=== PATIENT | female | born 1930 | race Caucasian/White ===

== ENCOUNTER 2018-08-24 20:40 | Observation (INO) | payer MEDICARE ==
[2018-08-24 21:14] LABS: Hemoglobin 11.1 g/dL (12.0-16.0); Mean Corpuscular HGB CONC 29.6 g/dL (32.0-36.0); Mean Corpuscular Hemoglobin 19.5 pg (27.0-31.0); Mean Corpuscular Volume 65.9 fL (78.0-98.0); Platelet Count 443 thou/uL (130-400); RBC Distribution Width 18.7 % (11.5-14.5); Red Blood Cell (RBC) Count 5.71 mill/uL (4.20-5.40); White Blood Cell (WBC) Count 9.7 thou/uL (4.8-10.8)
[2018-08-24 21:27] LABS: #Basophils 0.1 thou/uL (0.0-0.2); #Eosinphils 0.2 thou/uL (0.0-0.7); #Lymphocytes 1.9 thou/uL (1.20-3.40); #Monocytes 0.6 thou/uL (0.11-0.59); %Basophils 0.6 % (0.0-1.0); %Eosinophils 1.6 % (0.0-10.0); %Lymphocytes 19.4 % (21.0-51.0); %Monocytes 5.9 % (0.0-10.0); %Neutrophils 72.4 % (42.0-75.0); Anisocytosis SLIGHT = 6-15 cells (100X) (0-5/hpf); Hypochromia MODERATE=16-30 cells (100X) (0-5/hpf); MDiff Complete? YES; Microcytosis SLIGHT = 6-15 cells (100X) (0-5/hpf); Platelet Morphology Comment Appears Increased
[2018-08-24 21:29] LABS: ALT (SGPT) 9 U/L (8-55); AST (SGOT) 13 U/L (5-34); Albumin 3.8 g/dL (3.4-4.8); Alkaline Phosphatase 105 U/L (40-150); Anion Gap 13 mmol/L (10-20); BUN (Urea Nitrogen) 20 mg/dL (9.8-20.1); Bilirubin, Total 0.3 mg/dL (0.2-1.2); Calc. Creatinine Clearance 0 mL/min (70-130); Carbon Dioxide 27 mmol/L (23-31); Chloride 105 mmol/L (98-107); Estimated GFR-MDRD 47; Globulin 3.4 g/dL (2.4-3.5); Glucose 111 mg/dL (83-110); Protein, Total 7.2 g/dL (6.0-8.3); Sodium 141 mmol/L (136-145)
[2018-08-24 21:51] LABS: CKMB 1.5 ng/mL (0-6.6)
--- NOTE | 2018-08-24 22:21 | RAD ---
RIGHT WRIST THREE VIEWS: History: Right wrist injury following a fall. FINDINGS: Markedly comminuted distal radial fracture with extension intraarticularly, marked dorsal angulation and severe foreshortening with resultant deformity. Heterogeneous bony demineralization with some deg enerative changes. IMPRESSION: Comminuted distal radial fracture with foreshortening and dorsal angulation with intraarticular exten fernie and some resultant deformity. POS: [facility]
--- NOTE | 2018-08-24 22:36 | RAD ---
EXAM: CHEST ONE VIEW: History: Injury following a fall. Comparison: 11-08-17 FINDINGS: Heart size is within normal limits. There is some bony demineralization. No confluent pneumonia, over t edema, or pleural effusion. IMPRESSION: No significant acute intrathoracic disease. POS: [facility]
--- NOTE | 2018-08-24 22:40 | RAD ---
RIGHT FOREARM TWO VIEWS: History: Injury following a fall. FINDINGS: There is evidence for a comminuted distal radial fracture with some soft tissue swelling. There is ma lalignment. The remainder of the forearm appears intact. IMPRESSION: Comminuted fracture of the distal radius with deformity of the wrist. A follow up three view wrist ex am should be considered which would allow better evaluation of the wrist fracture. POS: [facility]
[2018-08-24] MEDS ORDERED: Lidocaine 1% PF 5 ML VIAL ONE (23:22)
--- NOTE | 2018-08-24 23:33 | CT ---
CT CERVICAL SPINE: History: Fall. Neck pain. FINDINGS: Axial images were obtained with coronal and sagittal reconstructions. There are changes of spondylosis at C5-6 and C6-7. No evidence of acute cervical spine fracture is se en. The odontoid is unremarkable. Some heterogeneity is present in the left thyroid lobe. This may represent a left thyroid mass. Corre late with elective thyroid sonography. IMPRESSION: C5-6 and C6-7 changes of spondylosis. No evidence of acute cervical spine fracture is seen. POS: [facility]
--- NOTE | 2018-08-24 23:38 | CT ---
CT BRAIN: History: 87-year-old with history of dementia. History of fall. Technique: Noncontrast enhanced CT images of the brain obtained from base of skull through the vertex . Brain and bone windows obtained. Comparison: 11-08-17 FINDINGS: Images demonstrate cortical atrophy. No evidence of acute intracranial masses, hemorrhages, strokes o r contusions seen. Ventricles have normal size. IMPRESSION: Cortical atrophy. POS: [facility]
[2018-08-25 01:28] LABS: Troponin I 0.099 ng/mL (< 0.028)
[2018-08-25 04:28] LABS: Troponin I 0.146 ng/mL (< 0.028)
[2018-08-25] MEDS ORDERED: Nitroglycerin 0.4 MG TAB (25 Tab Bottle) PO PRN (05:17)
[2018-08-25] MEDS ORDERED: Ondansetron ODT 4 MG TAB PO PRN (05:22)
[2018-08-25] MEDS ORDERED: Acetaminophen 325 MG TAB PO PRN (05:22)
[2018-08-25] MEDS ORDERED: Ondansetron PF 4 MG/2 ML Vial IVP PRN (05:22)
[2018-08-25] MEDS ORDERED: Calcium Carbonate 500 MG ChewTAB PO PRN (05:22)
[2018-08-25] MEDS ORDERED: hydrALAZINE 20 MG/ML VIAL SLOW IVP PRN (05:24)
--- NOTE | 2018-08-25 06:07 | HP ---
CHIEF COMPLAINT: Fall. HISTORY OF PRESENT ILLNESS: The patient is an 87-year-old female, with dementia , was brought in by EMS from [facility] after an episode of fall that was not witnessed. The patient normally ambulates with the help of her walker. She is unable to recall any details of other fall. There is no fever, chills, nausea, vomiting, or diarrhea reported. The patient complained of right wrist pain when EMS arrived. In the emergency room, her initial vital signs showed temperature 98.6, respiration 20, pulse of 72 with a blood pressure 182/100 with O2 saturation 99% on room air. She was found to have distal radial fracture that was reduced by the ER physician. PAST MEDICAL HISTORY: 1. Alzheimer dementia. 2. History of vitamin B12 deficiency. 3. Hypertension. 4. History of DVT in the left lower extremity status post IVC filter. 5. Hypothyroidism. 6. History of fall causing left proximal femur fracture. PAST SURGICAL HISTORY: 1. ORIF of the left intertrochanteric femur fracture. 2. IVC filter placement. ALLERGIES: THE PATIENT IS ALLERGIC TO CODEINE. CURRENT MEDICATIONS: At the skilled nursing; 1. Tylenol as needed. 2. Amlodipine 5 mg daily. 3. Aspirin 325 mg daily. 4. Vitamin B12 at 1000 mcg daily. 5. Hydrochlorothiazide 12.5 mg daily. 6. Namenda 10 mg b.i.d. 7. Milk of magnesia as needed. 8. Senokot-S 2 tablets daily. SOCIAL HISTORY: The patient currently lives at assisted living facility at [place]. Per [place] record, the patient is a do not resuscitate. Surrogate decision maker to be verified. FAMILY HISTORY: Cannot be obtained from the patient due to current cognitive status. REVIEW OF SYSTEMS: Cannot be obtained from the patient due to current cognitive status. PHYSICAL EXAMINATION: VITAL SIGNS: As discussed above. GENERAL: An 87-year-old female, in no apparent distress. HEENT: Head; atraumatic, normocephalic. Sclerae anicteric. Moist mucous membranes. No oral lesion. NECK: Supple. No JVD appreciated. No carotid bruit. LUNGS: Clear to auscultation bilaterally. No wheezing, rales, rhonchi. HEART: S1, S2 present. Regular rate and rhythm. 2/6 systolic murmur over the mitral area. ABDOMEN: Soft, nontender. Bowel sounds present. EXTREMITIES: Splint noted over the right wrist. There was trace edema in bilateral lower extremity. No calf tenderness. SKIN: Warm and dry. There is a small superficial hematoma noted over the right forehead. LYMPH NODES: No palpable lymph nodes in the neck. NEUROLOGY: The patient is spontaneously moving all 4 extremities. Detailed neurological examination could not be done due to current cognitive status. PSYCHIATRY: The patient is alert, awake, and oriented to place and person. Detailed psychiatry examination could not be done due to current cognitive status. MUSCULOSKELETAL: As discussed above. LABORATORY DATA: WBC 9.7 with hemoglobin 11.1, hematocrit 37.6, platelet of 443. Chemistry showed sodium 141, potassium 4, chloride 105, bicarb 27, BUN 20, creatinine 1.09, glucose of 111. LFTs in normal range. Troponin maximum was 0.146. IMAGING STUDIES: X-ray of the wrist showed distal radial fracture. Chest x-ray by my review was negative for acute findings. Cervical spine CT showed chronic changes. EKG by my review showed sinus rhythm with first-degree AV block, left axis deviation with nonspecific ST-T wave changes. IMPRESSION: 1. Status post ground level fall causing distal radial fracture. 2. Elevated troponin, probably secondary to demand ischemia. 3. Alzheimer dementia. 4. Hypertension. 5. History of vitamin B12 deficiency. 6. History of deep venous thrombosis, status post IVC filter. 7. Chronic kidney disease, stage 3. 8. Chronic hypochromic microcytic anemia. PLAN: The patient will be monitored in the telemetry unit for 24 hours. Orthopedic Team will be consulted for radial fracture. Resume selected home medications. DNR per skilled nursing record. Gentle hydration. We will check urinalysis. Fall precautions. Physical Therapy consultation. No infectious etiology identified. Continue vitamin B12 supplementation. Plan of care was discussed with the patient. We will discuss the plan of care with the family when they arrive. Job ID: [id number] [facility]
[2018-08-25] MEDS ORDERED: Amlodipine 5 MG TAB ONE (08:01)
[2018-08-25] MEDS ORDERED: Aspirin 325 MG TAB ONE (08:01)
--- NOTE | 2018-08-25 08:21 | RAD ---
RIGHT WRIST 3 VIEWS: HISTORY: Fracture. COMPARISON: 08/24/2018 at 8:06 p.m. FINDINGS: Limited evaluation of fine bony detail due to fiberglass cast. Distal radius fracture is again demon strated. There is slightly improved alignment when compared to the previous examination. Associated soft tissue swelling is still noted. Interval casting of a distal radius fracture. POS: [facility]
[2018-08-25 08:45] LABS: Anion Gap 13 mmol/L (10-20); BUN (Urea Nitrogen) 18 mg/dL (9.8-20.1); Calc. Creatinine Clearance 0 mL/min (70-130); Calcium 10.1 mg/dL (7.8-10.44); Carbon Dioxide 25 mmol/L (23-31); Chloride 106 mmol/L (98-107); Estimated GFR-MDRD 56; Glucose 118 mg/dL (83-110); Iron 19 ug/dL (50-170); Iron Binding Capacity, Total 360 mcg/dL (265-497); Potassium 3.8 mmol/L (3.5-5.1); Sodium 140 mmol/L (136-145)
[2018-08-25] MEDS: Cyanocobalamin (Vitamin B-12) 1,000 MCG TAB PO SCH (08:45)
[2018-08-25] MEDS: Senokot S 8.6-50 MG TAB PO SCH ×2 (08:45→21:01)
[2018-08-25] MEDS ORDERED: Amlodipine 5 MG TAB PO SCH (09:00)
[2018-08-25] MEDS ORDERED: Aspirin 325 mg Enteric Coated Tablet PO SCH (09:00)
[2018-08-25 09:23] LABS: CKMB 7.7 ng/mL (0-6.6)
[2018-08-25 09:56] LABS: #Lymphocytes 2.3 thou/uL (1.20-3.40); #Monocytes 0.7 thou/uL (0.11-0.59); #Neutrophils 8.1 thou/uL (1.40-6.50); %Basophils 0.2 % (0.0-1.0); %Eosinophils 0.3 % (0.0-10.0); %Lymphocytes 20.8 % (21.0-51.0); %Monocytes 6.4 % (0.0-10.0); %Neutrophils 72.3 % (42.0-75.0); Hemoglobin 10.9 g/dL (12.0-16.0); Mean Corpuscular HGB CONC 29.7 g/dL (32.0-36.0); Mean Corpuscular Hemoglobin 19.2 pg (27.0-31.0); Mean Corpuscular Volume 64.9 fL (78.0-98.0); Mean Platelet Volume 11.8 fL (7.4-10.4); Platelet Count 429 thou/uL (130-400); RBC Distribution Width 18.3 % (11.5-14.5); Red Blood Cell (RBC) Count 5.66 mill/uL (4.20-5.40); White Blood Cell (WBC) Count 11.1 thou/uL (4.8-10.8)
--- NOTE | 2018-08-25 12:44 | CON ---
DATE OF CONSULTATION: CHIEF COMPLAINT: Right wrist pain. HISTORY OF PRESENT ILLNESS: Ms. Ellington is an 87-year-old female who was found down at her nursing facility. She had fallen. She does not remember the events of the fall. She normally ambulates with a walker. She was found to have a wrist swelling and pain. She has dementia. She has been found to have a distal radius fracture on x-ray and she has been reduced and splinted. Orthopedics was consulted for this injury. The patient is resting comfortably in the emergency department. PAST MEDICAL HISTORY: Alzheimer's dementia, hypertension, history of DVT in the left lower extremity, hypothyroidism. PAST SURGICAL HISTORY: ORIF of left intertrochanteric femur fracture as well as IVC filter placement. ALLERGIES: TO CODEINE. SOCIAL HISTORY: The patient lives in a nursing facility. She denies smoking, alcohol, or drug use. FAMILY MEDICAL HISTORY: Noncontributory. REVIEW OF SYSTEMS: Positive for right mild wrist pain. Otherwise, she denies complaints or positives on review of systems. PHYSICAL EXAMINATION: VITAL SIGNS: Stable. She is normotensive on 98% on room air. GENERAL: She is alert, in no apparent distress, sitting with head of bed elevated. HEENT: Normocephalic, atraumatic. RESPIRATORY: Breathing comfortably. ABDOMEN: Soft, nontender, nondistended. MUSCULOSKELETAL: The patient's right upper extremity is in a splint. She is able to flex and extend the fingers without significant discomfort. She feels light touch in all digits. Two-second capillary refill. The splint goes above the elbow. IMAGES: X-rays of the right wrist demonstrate distal radius fracture with initial shortening and dorsal tilt with comminution. There has been a reduction maneuver with improved alignment and a splint has been placed. IMPRESSION: Right distal radius fracture status post reduction and splinting. PLAN: At this point, I think the patient will best be treated with nonoperative management. We will leave her splint in place for the next 10-14 days. At that point, I would like to see her back in the Orthopedic Clinic for x-ray as an outpatient and to convert her to a short-arm cast. She will likely need to wear immobilization for 6 weeks. We will continue to follow. She should elevate the arm. She will have access to pain control if needed. She is going to be monitored for her heart over the next 24 hours on telemetry. Job ID: [id number]
[2018-08-25 13:55] VITALS: BMI 24.2
--- NOTE | 2018-08-25 16:23 | PDOC.PN ---
- Subjective Encounter Start Date: 08/25/18 Encounter Start Time: 08:20 Subjective: Patient resting comfortably and without complaints. -: Difficult to obtain history due to underlying dementia. -: Does not recall what brought her into the hospital. Denies any pain. Aware she has a right distal radius fracture. She has been seen by Ortho who have advised she remain in a splint for at least 10 days. No recommendations for surgery at present. She was noted to have an indeterminate trop. She doesnt recall experiencing any chest pain. She continues to state she feels great. - Objective Resuscitation Status - Order Detail: 08/25/18 05:17 Resuscitation Status Routine Resuscitation Status: DNAR: NO Resuscitation Discussed with: per [place] records Vital Signs & Weight: Vital Signs (12 hours) Temp Pulse Resp BP Pulse Ox 08/25/18 13:22 97.6 F 74 16 181/84 H 94 L 08/25/18 08:35 95 Weight Weight 149 lb 14.4 oz Result Diagrams: 08/25/18 08:12 08/25/18 08:12 Phys Exam - Physical Examination Constitutional: NAD HEENT: PERRLA, moist MMs, sclera anicteric, oral pharynx no lesions Neck: no nodes, supple, full ROM Respiratory: clear to auscultation bilateral Cardiovascular: RRR Gastrointestinal: soft, non-tender, no distention, positive bowel sounds Musculoskeletal: no edema, pulses present Right wrist splint in place. Normal sensation and color to right hand. Neurological: normal sensation, moves all 4 limbs Psychiatric: normal affect, A&O x 3 Skin: no rash, normal turgor Dx/Plan (1) Elevated troponin Code(s): R74.8 - ABNORMAL LEVELS OF OTHER SERUM ENZYMES Status: Acute Plan: Third troponin further elevated, 0.842. Patient without any chest pain. Possibly demand ischemia vs. acs. Given dose of aspirin 325 mg at presentation. Awaiting cardiology review. Repeat ECG to assess for dynamic changes. (2) Distal radius fracture, right Code(s): S52.501A - UNSP FRACTURE OF THE LOWER END OF RIGHT RADIUS, INIT Status: Acute Plan: Seen by Ortho, splint in place with plans to reassess in 10 days. (3) Alzheimer's dementia Code(s): G30.9 - ALZHEIMER'S DISEASE, UNSPECIFIED; F02.80 - DEMENTIA IN OTH DISEASES CLASSD ELSWHR W/O BEHAVRL DISTURB Status: Chronic (4) Hypertension Code(s): I10 - ESSENTIAL (PRIMARY) HYPERTENSION Status: Chronic Plan: Resume home meds. Monitor BP. - Plan cont current plan of care * .
--- NOTE | 2018-08-25 19:12 | CON ---
DATE OF CONSULTATION: 08/24/2018 REASON FOR CONSULTATION: Type 2 ID. HISTORY OF PRESENT ILLNESS: Ms. Ellington is an 87-year-old woman, who was in her normal state of health when she fell. The events surrounding episode are vague. According to patient and daughter, there was no syncope noted. She did fall, but did not lose consciousness. No chest pain, pressure, or other associated symptoms were noted. PAST MEDICAL HISTORY: Alzheimer's, hypertension, previous DVT, hypothyroidism. ALLERGIES: CODEINE. SOCIAL HISTORY: Currently, lives in a nursing facility. REVIEW OF SYSTEMS: Difficult to obtain due to underlying confusion. PHYSICAL EXAMINATION: GENERAL: Patient is a pleasant female, who is in no acute distress. The patient appears their stated age. VITAL SIGNS: Blood pressure 180/80, pulse 74, and temperature 97.6. NEUROLOGIC: The patient is alert and oriented x3 with no focal neurologic deficits. HEENT: Sclerae without icterus. Mouth has moist mucous membranes with normal pallor. NECK: No JVD. Carotid upstroke brisk. No bruits bilaterally. LUNGS: Clear to auscultation with unlabored respirations. BACK: No scoliosis or kyphosis. CARDIAC: Regular rate and rhythm with normal S1 and S2. No S3 or S4 noted. No significant rubs, murmurs, thrills, or gallops noted throughout the precordium. PMI is not displaced. There is no parasternal heave. ABDOMEN: Soft, nontender, nondistended. No peritoneal signs present. No hepatosplenomegaly. No abnormal striae. EXTREMITIES: 2+ femoral and 2+ dorsalis pedis pulses. No cyanosis, clubbing, or edema. SKIN: No gross abnormalities. Abdomen the patient. PERTINENT LABORATORY DATA: Hemoglobin 10.9. Peak troponin 0.8, CK-MB of 7.7. Creatinine 0.94. EKG showed normal sinus rhythm with nonspecific intraventricular conduction delay, left axis deviation. IMPRESSION: 1. Type 2 myocardial infarction. 2. Recent fall. 3. Wrist fracture. 4. Previous deep venous thrombosis. RECOMMENDATIONS: At this point, recommend conservative therapy. Her recent troponin elevation likely related to recent trauma. Family agreed with continued conservative therapy. We will also like to know the events surrounding her episode. May consider outpatient 3-week event recorder to assess for significant dysrhythmias. We will also recommend echo with Doppler. Otherwise, I have no further recommendations. Job ID: [id number] [facility]
[2018-08-26 02:03] LABS: Bilirubin Negative (Negative); Blood, Urine Negative (Negative); Clarity CLEAR (Clear); Glucose, Urine (Dipstick) Negative (Negative); Leukocyte Negative (Negative); Nitrite Negative (Negative); Protein, Urine (Dipstick) Negative (Neg-Trace)
[2018-08-26 02:05] LABS: Bacteria/HPF Rare-Few HPF (None Seen); Hyaline Casts/LPF 0-3 HYALINE CAST LPF (0-3 Hyaline); Pathc Cast-AUWi Flag 0.13 (0-2.49); RBC/HPF 0-3 HPF (0-3); Squamous Epithelial 0-3 HPF (0-3); WBC/HPF None Seen HPF (0-3)
--- NOTE | 2018-08-26 05:54 | PDOC.CTH ---
Cardiology Progress Note - Subjective No complaints noted. - Objective Vital Signs Temp Pulse Resp BP Pulse Ox 08/26/18 05:46 97 08/26/18 01:00 97 18 178/80 H 08/25/18 20:00 99.6 F 82 20 179/84 H 97 Weight 149 lb 14.4 oz 08/24/18 08/25/18 08/26/18 06:59 06:59 06:59 Intake Total 240 Balance 240 - Physical Examination General/Neuro: NAD Neck: carotid US brisk, no JVD present Lungs: CTA, unlabored respirations Heart: PMI normal, RRR Abdomen: NT/ND, soft Extremities: + edema B - Telemetry Telemetry Rhythm: SR - Labs Result Diagrams: 08/26/18 07:57 08/26/18 07:57 Troponin/CKMB CK-MB (CK-2) 7.7 ng/mL (0-6.6) H* 08/25/18 08:12 Troponin I 0.842 ng/mL (< 0.028) H* 08/25/18 08:12 - Assessment/Plan DE type 2 Recent fall HTN Wirst fracture Dementia Recommend conservative approach Increase troponin secondary to recent trauma and not ruptured plaque Recommend outpatient three week event recorder to asses for dysrythmias; daughter in room and states they are not interested. Seh will not be compliant. Add BB and statin Increase norvasc to 10mg QAM
[2018-08-26] MEDS ORDERED: Amlodipine 5 MG TAB PO SCH (05:56)
[2018-08-26] MEDS ORDERED: Aspirin 325 mg Enteric Coated Tablet PO SCH (05:57)
[2018-08-26 08:25] LABS: #Lymphocytes 1.8 thou/uL (1.20-3.40); #Monocytes 0.9 thou/uL (0.11-0.59); #Neutrophils 7.4 thou/uL (1.40-6.50); %Basophils 0.4 % (0.0-1.0); %Eosinophils 0.4 % (0.0-10.0); %Lymphocytes 17.7 % (21.0-51.0); %Monocytes 9.2 % (0.0-10.0); %Neutrophils 72.3 % (42.0-75.0); Hemoglobin 10.8 g/dL (12.0-16.0); Mean Corpuscular HGB CONC 29.2 g/dL (32.0-36.0); Mean Corpuscular Volume 64.9 fL (78.0-98.0); Mean Platelet Volume 10.5 fL (7.4-10.4); Platelet Count 428 thou/uL (130-400); RBC Distribution Width 18.5 % (11.5-14.5); White Blood Cell (WBC) Count 10.2 thou/uL (4.8-10.8)
[2018-08-26 08:39] LABS: ALT (SGPT) 8 U/L (8-55); AST (SGOT) 18 U/L (5-34); Albumin 3.6 g/dL (3.4-4.8); Alkaline Phosphatase 100 U/L (40-150); Anion Gap 14 mmol/L (10-20); BUN (Urea Nitrogen) 14 mg/dL (9.8-20.1); Bilirubin, Total 0.8 mg/dL (0.2-1.2); Calc. Creatinine Clearance 45 mL/min (70-130); Calcium 9.9 mg/dL (7.8-10.44); Carbon Dioxide 20 mmol/L (23-31); Chloride 107 mmol/L (98-107); Estimated GFR-MDRD 58; Globulin 3.8 g/dL (2.4-3.5); Glucose 133 mg/dL (83-110); Potassium 3.3 mmol/L (3.5-5.1); Protein, Total 7.4 g/dL (6.0-8.3); Sodium 138 mmol/L (136-145)
[2018-08-26 09:04] LABS: Hypochromia MODERATE=16-30 cells (100X) (0-5/hpf); MDiff Complete? YES; Microcytosis MODERATE=15-30 cells (100X) (0-5/hpf); Platelet Morphology Comment Appears Increased; Polychromasia SLIGHT = 2-3 cells (100X) (0-2/hpf)
--- NOTE | 2018-08-26 10:22 | ULT ---
BILATERAL LOWER EXTREMITY VENOUS ULTRASOUND WITH DOPPLER DUPLEX: CPT: 63855 ICD-10-PCS: B54D INDICATIONS: Pain. Edema. History of DVT. TECHNIQUE: Color-flow Doppler, spectral wave-form analysis of pulsed Doppler, and pineda-scale imaging with compre ssion and augmentation were used to evaluate the bilateral common femoral, femoral, popliteal, sr solutions consultant ior tibial, and superficial femoral veins, and the proximal portions of the profunda femoral and grea ter saphenous veins. FINDINGS: There is lack of normal compressibility and flow within the femoral vein of the left lower extremity, at the mid portion, indicative of a focus of nonocclusive clot. Otherwise, there is no DVT identifi ed within the remaining deep vein structures of each lower extremity. IMPRESSION: Evidence of deep venous thrombosis involving the left femoral vein. Notification of report made available at 10:00 o'clock on 08/26/2018. CODE CR POS: [facility]
[2018-08-26] MEDS: Cyanocobalamin (Vitamin B-12) 1,000 MCG TAB PO SCH (10:30)
[2018-08-26] MEDS: Senokot S 8.6-50 MG TAB PO SCH (10:36)
[2018-08-26] MEDS ORDERED: Aspirin 81 mg Enteric Coated Tablet PO SCH (10:45)
[2018-08-26 18:36] VITALS: BP 155/72; TEMP 98.2
[2018-08-26] MEDS ORDERED: Atorvastatin Calcium 20 MG TAB PO SCH (21:00)
--- NOTE | 2018-08-27 14:13 | DIS ---
DATE OF ADMISSION: 08/25/2018 DATE OF DISCHARGE: 08/26/2018 DISCHARGE DIAGNOSES: 1. Distal radius fracture, splint in place. 2. Fall. 3. Alzheimer's. 4. Hypertension. 5. Type 2 myocardial infarction. CONSULTING PHYSICIANS: 1. Dr. Loyola, Cardiology. 2. Dr. Islas, Orthopedics. HOSPITAL COURSE: Ms. Ellington is a very pleasant 87-year-old woman with dementia, who presented to the emergency room following a fall and sustained a distal radius fracture, so she underwent reduction and splinting. Per Dr. Islas, she would need to have this splint in place for 10 to 14 days, after which she could be seen in the orthopedic clinic for repeat x-ray as an outpatient, with plans to convert to a short arm cast. The patient underwent PT/OT evaluation and was advised on getting a platform for her walker to assist with stability when ambulating given her injury. Initial laboratory studies done included troponins, which were trended and became elevated. Initial troponin was 0.116 and her troponin further elevated at 0.842. She was felt to have demand ischemia due to the injury. Dr. Loyola of Cardiology was consulted. He agreed that the increased troponin was likely due to her trauma rather than a ruptured plaque. She was advised to start a beta-minerva and statin as well as an increase in her Norvasc to 10 mg every morning. Otherwise, she was cleared for discharge to home. He did advise on an outpatient three-week event recorder to assess for dysrhythmias; however, daughter and patient have declined given her state of dementia, it was felt it would add to her confusion and she often forgets why she is wearing one and then attempts to remove it becoming distressed by it. During her hospital stay, the patient continued to do very well without any complaints. She had urinalysis done that was unremarkable. She underwent a brain CT on initial presentation due to the fall, which showed only cortical atrophy. A cervical spine CT was also done, which showed a spondylosis but no acute fractures. A chest x-ray was also done that was unremarkable. REVIEW OF SYSTEMS: On the day of discharge, the patient appears to be in good spirits and without complaints. She has been tolerating oral intake without any difficulties. Has not had any nausea or vomiting. She denies any abdominal pain. Has not had any chest pain or shortness of breath. She has remained afebrile. No chills or sweats. No cough. Has been moving her bowels as normal and has not had any urinary symptoms. All other review of systems are negative. PHYSICAL EXAMINATION: GENERAL: The patient again appears to be in good spirits. Well developed, well nourished. VITAL SIGNS: Temperature 98.2, pulse 65, respirations 16, blood pressure 155/72, O2 saturation 98% on room air. HEENT: Normocephalic and atraumatic. Pupils are equal, round, and reactive to light. Sclerae without icterus. Oropharynx is clear. NECK: Supple. No lymphadenopathy. LUNGS: Clear to auscultation bilaterally. CARDIAC: Regular rate and rhythm. ABDOMEN: Soft, nontender, nondistended. Normoactive bowel sounds present. EXTREMITIES: No clubbing, cyanosis, or edema. NEUROLOGIC: Alert and oriented x3. SKIN: Without rash or jaundice. LABORATORY DATA: White blood count 10.2, hemoglobin 10.8, hematocrit 37, platelets 428. Sodium 138, potassium 3.3, BUN 14, creatinine 0.91, GFR 58. LFTs, unremarkable. IMAGING DATA: As mentioned above. PROCEDURES: Reduction of right distal radius fracture with splinting by Orthopedics. CONDITION: Stable at discharge. ACTIVITY: As tolerated with assistive device. She will require a platform for her walker. DIET: Heart healthy. FOLLOWUP: 1. The patient will follow up with Dr. Islas in the Orthopedic Clinic in 10 to 14 days. 2. Advised to follow up with her primary care physician. 3. The patient will follow up with Dr. Loyola in 3 to 4 weeks. 4. The patient will follow up with her primary care physician for repeat laboratory studies and potassium replacement if needed. DISCHARGE MEDICATIONS: 1. Prescription given for metoprolol succinate 25 mg p.o. daily. 2. Prescription given for atorvastatin 20 mg p.o. at bedtime. 3. New prescription given for amlodipine, it has been increased from 5 mg to 10 mg p.o. daily. 4. The patient otherwise advised to resume all other home medications. DISPOSITION: The patient medically cleared for discharge back to a [facility]. Her daughter will provide transportation and they are happy to accept her today. The patient's case was discussed with Dr. Rivera, who agrees with plan of care as described above. Job ID: [id number]
== END 2018-08-26 19:50 | disposition home or self-care (01) ==
LOC: ERS 20:40 → ERHOLD 08-25 00:10 → 2NO 08-25 13:17
PROVIDERS: ADMIT Internal Medicine; ATTEND Internal Medicine
DX: S52.571A Other intraarticular fracture of lower end of right radius, initial encounter for closed fracture (principal); I21.A1 Myocardial infarction type 2; G30.9 Alzheimer's disease, unspecified; F02.80 Dementia in other diseases classified elsewhere, unspecified severity, without behavioral disturbance, psychotic disturbance, mood disturbance, and anxiety; M47.812 Spondylosis without myelopathy or radiculopathy, cervical region; I10 Essential (primary) hypertension; E03.9 Hypothyroidism, unspecified; Z86.718 Personal history of other venous thrombosis and embolism; Z66 Do not resuscitate; Z79.82 Long term (current) use of aspirin; Z79.899 Other long term (current) drug therapy; Z88.5 Allergy status to narcotic agent; W19.XXXA Unspecified fall, initial encounter
CPT/HCPCS: 70450; 71045; 72125; 73090; 73110 ×2; 80048; 80053 ×2; 81001; 82553 ×2; 82728; 83540; 83550; 83880; 84484 ×3; 85025 ×3; 93005; 93306; 93970; 94760 ×2; 96374; 97116 ×2; 97139 ×2; 99285; G0378 ×2; 36415; 93010; J0360; J2001

== ENCOUNTER 2019-01-16 12:46 | Inpatient (IN) | payer MEDICARE, BC ==
--- NOTE | 2019-01-16 13:37 | RAD ---
XR Chest 1 View Portable HISTORY: Dyspnea COMPARISON: 08/24/2018 FINDINGS: The heart is mildly enlarged the aorta is tortuous. The lungs are expanded with mild pulmon yudy vascular congestion. No lobar consolidation, pneumothoraces or large effusions are seen.
[2019-01-16 13:44] LABS: #Lymphocytes 0.9 thou/uL (1.20-3.40); #Monocytes 0.4 thou/uL (0.11-0.59); %Basophils 0.2 % (0.0-1.0); %Eosinophils 0.1 % (0.0-10.0); %Lymphocytes 8.1 % (21.0-51.0); %Monocytes 3.7 % (0.0-10.0); %Neutrophils 87.9 % (42.0-75.0); Mean Corpuscular HGB CONC 28.8 g/dL (32.0-36.0); Mean Corpuscular Volume 69.3 fL (78.0-98.0); Mean Platelet Volume 10.1 fL (7.4-10.4); Platelet Count 508 thou/uL (130-400); Red Blood Cell (RBC) Count 6.02 mill/uL (4.20-5.40); White Blood Cell (WBC) Count 11.4 thou/uL (4.8-10.8)
[2019-01-16 14:03] LABS: Anisocytosis SLIGHT = 6-15 cells (100X) (0-5/hpf); Hypochromia SLIGHT = 6-15 cells (100X) (0-5/hpf); Large Platelets SLIGHT; MDiff Complete? YES; Microcytosis SLIGHT = 6-15 cells (100X) (0-5/hpf); Ovalocytes SLIGHT = 2-5 cells (100X) (0-1/hpf); Platelet Morphology Comment Appears Increased; Polychromasia SLIGHT = 2-3 cells (100X) (0-2/hpf)
[2019-01-16 14:14] LABS: ALT (SGPT) 16 U/L (8-55); AST (SGOT) 106 U/L (5-34); Albumin 3.8 g/dL (3.4-4.8); Alkaline Phosphatase 125 U/L (40-150); Anion Gap 22 mmol/L (10-20); BUN (Urea Nitrogen) 15 mg/dL (9.8-20.1); Bilirubin, Total 0.5 mg/dL (0.2-1.2); Calc. Creatinine Clearance 0 mL/min (70-130); Calcium 10.1 mg/dL (7.8-10.44); Carbon Dioxide 17 mmol/L (23-31); Chloride 105 mmol/L (98-107); Estimated GFR-MDRD 39; Glucose 190 mg/dL (83-110); Potassium 4.6 mmol/L (3.5-5.1); Protein, Total 8.8 g/dL (6.0-8.3); Sodium 139 mmol/L (136-145)
[2019-01-16 14:35] LABS: CKMB 199.6 ng/mL (0-6.6)
[2019-01-16] MEDS ORDERED: Heparin 1,000 UNITS/ML VIAL ONE ×2 (14:54→14:57)
[2019-01-16] MEDS ORDERED: Heparin 25,000 units/D5W 500 ML ONE (14:54)
[2019-01-16 15:10] LABS: INR-International Normal Ratio 1.3; PTT 31.4 SEC (22.9-36.1); Prothrombin Time 15.7 SEC (12.0-14.7)
--- NOTE | 2019-01-16 15:21 | ULT ---
VENOUS DOPPLER ULTRASOUND OF THE RIGHT LOWER EXTREMITY: Date: 01/16/19 HISTORY: Right lower extremity pain. TECHNIQUE: Noriega scale ultrasound with color flow and spectral Doppler imaging of the deep venous system of the r ight lower extremity is performed. FINDINGS: There is absence of compression due to intraluminal thrombus in the deep veins of the right lower ext remity from the saphenofemoral junction to the posterior tibial veins. There is absence of flow from the mid femoral to the distal femoral vein. The remainder of the system is nonocclusive with some pre servation of flow. IMPRESSION: Deep venous thrombosis in the right lower extremity. Discussed over the phone with ER physician, Dr. Ester Mora, at 1426 hours. CODE CR. POS: [facility]
[2019-01-16] MEDS ORDERED: Aspirin Chewable 81 MG TAB ONE (15:32)
[2019-01-16] MEDS ORDERED: ISOVUE-370 76%-LOCM 1 ML ONE (16:07)
[2019-01-16 17:22] LABS: Troponin I 57.988 ng/mL (< 0.028)
[2019-01-16] MEDS ORDERED: Acetaminophen 325 MG TAB PO PRN (17:25)
[2019-01-16] MEDS ORDERED: Heparin 25,000 units/D5W 500 ML IVPB SCH (17:30)
[2019-01-16] MEDS ORDERED: Heparin 10,000 UNITS/ 10 ML VIAL SLOW IVP SCH (17:30)
[2019-01-16] MEDS ORDERED: Nitroglycerin 0.4 MG TAB (25 Tab Bottle) PO PRN (17:31)
[2019-01-16] MEDS ORDERED: Dextrose 5 % And 0.9 % NaCl 1,000 ML IV SCH ×2 (17:45→18:14)
[2019-01-16 17:51] LABS: Hemoglobin 11.5 g/dL (12.0-16.0); Platelet Count 461 thou/uL (130-400)
--- NOTE | 2019-01-16 18:23 | CON ---
DATE OF CONSULTATION: 01/16/2019 REASON FOR CONSULTATION: Elevated troponins. HISTORY OF PRESENT ILLNESS: Ms. Ellington is a very pleasant 88-year-old white female, who comes to the hospital for increased shortness of breath and cough. She has dementia and has been in the hospital recently for DVT. She has not been on any anticoagulation due to very frequent falls. Her son is in the room on my evaluation. Her son is a general surgeon, out of [place], who just got here. She was seen in the ER and was diagnosed with a right leg DVT, which is new. She had a left leg DVT on her last admission. The assumption was that she threw a blood clot to her lungs and the troponin elevation is secondary to PE. However, the first troponin was somewhat elevated, it was 10, second troponin was 57, so Cardiology has been consulted for this. On my evaluation, Ms. Ellington is denying any chest pain, tightness, or pressure. She is very pleasantly demented and smiles a lot. She otherwise is somewhat tachypneic. PAST MEDICAL HISTORY: 1. History of DVTs and PEs. 2. IVC filter placed about 45 years ago. 3. Hypothyroidism. 4. Hypertension. 5. Alzheimer's dementia. 6. History of vitamin B12 deficiency. 7. History of fall causing left proximal femur fracture. SOCIAL HISTORY: No alcohol, tobacco, or drugs. She lives in a facility for [employer]. PAST SURGICAL HISTORY: 1. ORIF of the left intertrochanteric femur fracture. 2. IVC filter placement several years back. ALLERGIES: CODEINE. OUTPATIENT MEDICATIONS: 1. Tylenol p.r.n. 2. Amlodipine 5 mg a day. 3. Aspirin 325 a day. 4. B12. 5. Hydrochlorothiazide 12.5 a day. 6. Namenda 10 mg b.i.d. 7. Milk of magnesia as needed. 8. Senokot p.r.n. FAMILY HISTORY: Noncontributory. REVIEW OF SYSTEMS: Unobtainable as the patient is confused and demented. PHYSICAL EXAMINATION: VITAL SIGNS: Temperature 97.2, pulse 120, respiratory rate 27, and saturating 91% on 4 L nasal cannula. GENERAL: Awake, alert, oriented to person only, in no distress. HEENT: Normocephalic, atraumatic. NECK: Supple. LUNGS: Coarse breath sounds bilaterally. CARDIOVASCULAR: S1 and S2. Grade 2/6 systolic murmur at the right upper sternal border. ABDOMEN: Soft. Positive bowel sounds. EXTREMITIES: 2+ edema in the right leg, 1+ edema in the left leg. SKIN: Warm and dry. LABORATORY DATA: Laboratory work was reviewed. CBC with a white count of 11, hemoglobin of 12, hematocrit of 41, and platelet count of 508. Coags, INR of 1.3. Chemistry with a sodium of 139, potassium is 4.6, chloride 105, carbon dioxide of 17, anion gap of 22, BUN of 15, creatinine of 1.29, GFR of 39, and glucose of 190. CK-MB was 199. Troponin went from 10.5 up to 57.9. BNP of 770. Albumin of 3.8. RADIOLOGICAL DATA: EKG was reviewed. Vascular ultrasound done today shows DVT on the right lower extremity. Venous ultrasound done on her last admission back in August showed DVT on the left lower extremity. ASSESSMENT: 1. [id number] myocardial infarction. 2. Acute deep vein thrombosis possibly and most likely as well as pulmonary embolism. 3. Dementia. PLAN: 1. We will repeat an echocardiogram to look at her RV to assess severity of disease. 2. With her level of troponin, I would definitely want to know the extent of her PEs because if he really does not have much in the sense of pulmonary clots, this may have been a primary cardiac event. Otherwise, continue only heparin for now. 3. We spoke with her son about possibly doing tPA, which she probably is not a candidate secondary to her age, but at least may be doing a catheter directed tPA administration in the pulmonary arteries and he is not interested in any anything like that. He actually confirms that she is DNR/DNI. 4. Continue heparin drip for now. 5. Echocardiogram. We will follow. Job ID: [id number]
--- NOTE | 2019-01-16 18:25 | CT ---
CTA Angio Chest W WO Con History: Shortness of breath. Comparison: Chest radiograph same day Findings: CT angiogram chest was performed after the intravenous administration of contrast. 3-D rend ering was provided. Pulmonary trunk is enlarged. Admixing artifact within the left pulmonary artery. No proximal segmenta l pulmonary arterial filling defect. Heart size is enlarged. No significant pericardial fluid. There is reflux contrast within the suprahe patic IVC and hepatic veins. Mild aortic calcifications. Large right and moderate left pleural effusion. Moderate asymmetric pulmonary edema. Motion artifact limits evaluation of the ribs for fracture. Chronic appearing superior endplate defor mities at T11 and T12. Limited evaluation of the upper abdomen is unremarkable. Impression: 1. No proximal segmental pulmonary arterial filling defect. 2. Asymmetric right lung pulmonary edema can be seen with mitral regurgitation. 3. Dilated pulmonary trunk indicating pulmonary arterial hypertension. 4. Large right and moderate left pleural effusion. 5. Reflux of contrast within the suprahepatic IVC and hepatic veins suggests diastolic dysfunction.
--- NOTE | 2019-01-16 18:48 | HP ---
PRIMARY CARE PHYSICIAN: Dr. Martinez and Dr. Leigh. CHIEF COMPLAINT: Shortness of breath. HISTORY OF PRESENT ILLNESS: The patient is an 88-year-old patient, residing at [facility] with Alzheimer dementia, was brought into the hospital with shortness of breath. [facility] the [facility] by [facility] was 88%. She received 2 DuoNebs. The patient has Alzheimer dementia and not much information is available from the patient. She denies any chest pain. She also stated that the legs are swollen all the time. No fever or chills reported. No family members at the bedside. PAST MEDICAL HISTORY: 1. Alzheimer dementia. 2. History of DVT in the left lower extremity, status post IVC filter. 3. History of fall causing left proximal femur fracture. 4. Hypothyroidism. 5. Hypertension. 6. History of vitamin B12 deficiency. PAST SURGICAL HISTORY: 1. IVC filter placement. 2. ORIF for the left intertrochanteric femur fracture. ALLERGIES: THE PATIENT IS ALLERGIC TO CODEINE. CURRENT MEDICATIONS: At the nursing facility, 1. Tylenol as needed. 2. Vitamin B12 1000 mcg daily. 3. Ibuprofen as needed. 4. Lamisil cream as needed. 5. Namenda 10 mg twice a day. 6. Milk of magnesia as needed. 7. Senokot S twice a day as needed. SOCIAL HISTORY: As discussed above. She currently lives at [facility]. Per penitentiary record, the patient is do not resuscitate. Surrogate decision maker to be verified with the family. FAMILY HISTORY: Cannot be obtained from the patient due to current cognitive status. REVIEW OF SYSTEMS: Cannot be obtained from the patient due to current cognitive status. PHYSICAL EXAMINATION: VITAL SIGNS: Temperature 97.6, pulse rate of 106, blood pressure 142/70, O2 saturation of 94% on 4 L nasal cannula, and respirations of 22. GENERAL: An 88-year-old female, in mild respiratory distress, able to complete short phrases. HEENT: Head, atraumatic and normocephalic. Sclerae anicteric. Moist mucous membranes. No oral lesion. NECK: Supple. No JVD appreciated. No carotid bruit. LUNGS: Show diffuse rhonchi and wheezing bilaterally. There is accessory muscle use. There is diminished air entry at bilateral bases. HEART: S1, S2 present. Tachycardic. No rubs or gallops. There is 2/6 systolic murmur over the mitral area. ABDOMEN: Soft, nontender. Bowel sounds present. EXTREMITIES: There is 1+ edema in the right lower extremity. Trace edema in the left lower extremity. NEUROLOGIC AND PSYCHIATRIC: Could not be reliably done due to current mentation. The patient is following commands to some extent. SKIN: Warm and dry. LYMPH NODES: No palpable lymph nodes in the neck. PERIPHERAL VASCULAR: Radial pulses palpable bilaterally. MUSCULOSKELETAL: No joint swelling or tenderness. LABORATORY FINDINGS: CBC showed WBC of 11.4 with hemoglobin 12.0, hematocrit 41.7 with platelet count 508. INR 1.3. Chemistry showed sodium 139, potassium 4.6, chloride 105, bicarb 17, BUN 15, creatinine 1.29. BNP was 770, BNP was 299 earlier this year. Troponin was 10.5. IMAGING STUDIES: Chest x-ray by my review showed mild pulmonary vascular congestion. Right lower extremity Doppler was positive for DVT from the saphenofemoral junction to the posterior tibial vein. EKG by my review showed sinus tachycardia. IMPRESSION: 1. Acute hypoxic respiratory failure. 2. [id number] myocardial infarction. Repeat troponin was 57.9. 3. Right lower extremity deep venous thrombosis. 4. Alzheimer dementia. 5. Chronic kidney disease, stage 3. 6. Metabolic acidosis. 7. History of falls. 8. Hypertension. 9. History of vitamin B12 deficiency. 10. Hypothyroidism, currently not on thyroid supplementation. 11. History of deep venous thrombosis in the left lower extremity, status post IVC filter. PLAN: The patient is currently on heparin drip. We will continue O2 supplementation. We will monitor the patient in the intermediate care unit. We will add aspirin. Echocardiogram will be done. I discussed the case in detail with Cardiology, Dr. Lima. CT angiogram of the chest will be done to rule out pulmonary embolism. We will gently hydrate to prevent contrast induced nephropathy. Due to significant wheezing, we will also add low-dose steroid. We will resume vitamin B12 and Namenda. We will add PPI. Nebulizer treatment. Plan of care was discussed with the patient. We will discuss the plan with the family when they arrive. Job ID: [id number]
[2019-01-16 19:10] VITALS: TEMP 98.8
[2019-01-16 19:31] LABS: CKMB 400.8 ng/mL (0-6.6)
[2019-01-16] MEDS ORDERED: Senokot S 8.6-50 MG TAB PO SCH (21:00)
[2019-01-16] MEDS ORDERED: Atorvastatin Calcium 10 MG TAB PO SCH (21:00)
[2019-01-16] MEDS ORDERED: methylPREDNISolone Sod Succ 40 MG VIAL IVP SCH (22:00)
[2019-01-17] MEDS ORDERED: Cyanocobalamin (Vitamin B-12) 1,000 MCG TAB PO SCH (09:00)
[2019-01-17] MEDS ORDERED: Aspirin 325 mg Enteric Coated Tablet PO SCH (09:00)
[2019-01-17] MEDS ORDERED: Prevnar 13-Val Conj/PF 0.5 ML SYRINGE IM ONE (17:45)
--- NOTE | 2019-01-19 15:36 | DIS ---
DATE OF ADMISSION: 01/16/2019 DATE OF DISCHARGE: 01/16/2019 DATE : January 16, 2019, at 7 p.m. BRIEF HOSPITAL COURSE: The patient was 88-year-old female residing at [facility] with Alzheimer dementia, presented to the hospital with shortness of breath. Her O2 saturation at the nursing facility was 88% on room air. She received nebulizer treatment. She was brought into the emergency room. In the emergency room, her initial troponin was 10.58. She was also found to have right lower extremity DVT. She was started on heparin drip. She also received 325 mg aspirin in the emergency room. Repeat troponins were 57.9 and 85 with CK-MB maximum of 400. The patient was monitored in the intermediate care unit. She was also seen by Cardiology, Dr. Lima. The patient was DNR on admission. She was found to have pulseless electrical activity and subsequently at 7 p.m. on the same day. Family was at the bedside. FINAL DIAGNOSES: 1. Acute hypoxic respiratory failure. 2. [id number] myocardial infarction. 3. Right lower extremity deep venous thrombosis. 4. Alzheimer dementia. 5. Chronic kidney disease, stage 3. 6. Metabolic acidosis. 7. History of falls. 8. Hypertension. 9. History of vitamin B12 deficiency. 10. Hypothyroidism. 11. History of deep venous thrombosis, status post inferior vena cava filter. Job ID: [id number]
== END 2019-01-16 19:00 | disposition expired ==
LOC: ERS 12:46 → IMCU/EMU 15:09
PROVIDERS: ADMIT Internal Medicine; ATTEND Internal Medicine
DX: I21.4 Non-ST elevation (NSTEMI) myocardial infarction (principal); I26.99 Other pulmonary embolism without acute cor pulmonale; J96.01 Acute respiratory failure with hypoxia; I82.401 Acute embolism and thrombosis of unspecified deep veins of right lower extremity; E87.2 Acidosis; Z66 Do not resuscitate; G30.9 Alzheimer's disease, unspecified; F02.80 Dementia in other diseases classified elsewhere, unspecified severity, without behavioral disturbance, psychotic disturbance, mood disturbance, and anxiety; E03.9 Hypothyroidism, unspecified; I12.9 Hypertensive chronic kidney disease with stage 1 through stage 4 chronic kidney disease, or unspecified chronic kidney disease; N18.3 Chronic kidney disease, stage 3 (moderate); Z98.890 Other specified postprocedural states; Z88.5 Allergy status to narcotic agent; Z79.899 Other long term (current) drug therapy; Z86.718 Personal history of other venous thrombosis and embolism; Z91.81 History of falling
CPT/HCPCS: 36415; 71045; 71275; 80053; 82553; 83880; 84484; 85025; 85610; 85730; 93005; 94640; J1642; J1644; J7620; Q9966